=== PATIENT | male | born 1985 ===

== ENCOUNTER 2017-12-10 07:54 | Inpatient (IN) | payer MEDICAID ==
[~2017-12-10] VITALS: Ht 185.4 cm; Wt 82.1 kg
--- NOTE | ~2017-12-10 | MORECARE ---
CASE MANAGEMENT DISCHARGE SUMMARY PATIENT: JOSAFAT YEBOAH UNIT: [id number] ADM DATE: 12/10/17 AGE: 32 : [birth year] SEX: M ROOM/BED: D.2237 AUTHOR: KENTRELL URIAS PHYSICIAN: REFERRING PHYSICIAN: ARABELLA BAER MD DATE OF SERVICE: 12/16/17 Discharge Plan Patient Name: JOSAFAT YEBOAH Facility: [facility]:[place] : 1985 Planned Disposition: Court\Law Enforcement Anticipated Discharge Date: Discharge Date: Expected LOS: Initial Reviewer: [email or web address] Initial Review Date: 12/12/2017 Generated: 12/16/17 2:13 pm Comments DCP- Discharge Planning Updated by [email or web address]: Janett Bermudez on 12/16/17 12:[address] Patient Name: JOSAFAT YEBOAH Admission Status: Elective Accout number: [id number] Admission Date: 12-10-2017 : 1985 Admission Diagnosis:ENTEROCOLITIS DUE TO CLOSTRIDIUM DIFFICILE, RECURRENT Attending: ARABELLA BAER Current LOS: 6 Anticipated DC Date: Planned Disposition: Court\Law Enforcement Primary Insurance: MEDICAID ASSISTED PENDING Discharge Planning Comments: CM SPOKE WITH DAVON AT [facility], SHE SAID HE SHOULD BE ABLE TO RETURN BACK TO [facility] AT [place]. SHE SAID HAVE THE NURSE CALL REPORT TO [phone]. Dermatology Sales Representative: Janett Bermudez DCP- Discharge Planning Updated by [id number]: Rose Lala on 12/12/17 1:[address] Patient Name: JOSAFAT YEBOAH Admission Status: Elective Accout number: [id number] Admission Date: 12-10-2017 : 1985 Admission Diagnosis: Attending: ARABELLA BAER Current LOS: 2 Anticipated DC Date: Planned Disposition: Court\Law Enforcement Primary Insurance: MEDICAID ASSISTED PENDING Discharge Planning Comments: Patient is a resident of [facility] ([place]). He will go back to [facility] on discharge. CM will continue to follow and assist with discharge planning/needs. Dermatology Sales Representative: Rose Lala Last DP export: 12/12/17 1:25 Patient Name: JOSAFAT YEBOAH Page [id number] at 1313 All edits/amendments must be made on the electronic document DICTATION DATE: 12/16/171311 WOOD GLUER: CHEPE 12/16/171311 RPT#: [id number] DC DATE: STATUS: ADM IN [facility] [address] [place] [address] END OF REPORT
--- NOTE | ~2017-12-10 | OP ---
PATIENT NAME: JOSAFAT YEBOAH MEDICAL RECORD: [id number] :[birth year] LOCATION:D.MS [id number] ADMISSION DATE:12/10/17 SURGEON: DESTINY ELAM MD DATE OF OPERATION: 12/11/2017 PREOPERATIVE DIAGNOSIS: Infected pilonidal cyst. POSTOPERATIVE DIAGNOSIS: Infected pilonidal cyst. PROCEDURE: Pilonidal cystectomy. SURGEON: Destiny Elam MD COMMUNICATION CENTER COORDINATOR: None. BLOOD LOSS: 100 cc. ANESTHESIA: General. COMPLICATIONS: None. The patient has refractory C. diff. He has undergone a recent sigmoidoscopy out at the group home and an entire colonoscopy was not attempted due to fear that there would be an iatrogenic perforation. He has been on antibiotics due to an infected pilonidal cyst. My plan is to excise the cyst in its entirety and therefore remove the source of infection. We can then keep him off antibiotics as antibiotics would "kill" the cecal transplant. I then asked Dr. Otto Nieves, who has an extensive experience with fecal transplantation, to perform a fecal transplant likely through an upper GI source. The risks, possible complications and alternatives to the procedure were explained to the patient. He elects to proceed. OPERATIVE COURSE: The patient was conveyed to the operating room electively on 12/11/2017. General anesthesia was induced by anesthesia staff. The patient was placed in the prone jackknife position. Through a central pore, I placed an Angiocath. I then injected a combination of hydrogen peroxide and methylene blue. Through the use of double curvilinear incisions, I excised the skin and subcutaneous tissue around the pore. Additional tissue had to be excised in a piecemeal fashion and this was a sharp dissection. Granulation tissue was present. There was a cyst that was present that was excised as well. I excised all of the blue material that I could identify and this was an excision in a piecemeal fashion. Cultures were obtained of some purulent material. I excised down to the periosteum of the sacrum. Once I was satisfied that the entire cyst had been excised, I measured it and it measured 4.2 cm in the cephalad caudad dimension and 1.7 cm in the lateral dimension. It was 3.0 cm deep. I irrigated with hydrogen peroxide. The wound was closed in layers with interrupted #1 Vicryls for the deep layer as well as multiple interrupted horizontal mattress 2-0 Vicryls for the skin and subcutaneous tissue. I then inserted a quarter-inch Johnny drain between some of the sutures and sutured the drain to the skin with a silk suture. A bulky dressing was then applied. The patient was then extubated and conveyed to post-anesthesia care unit where he was in stable condition. I am going to consult Dr. Otto Nieves to see OPERATIVE REPORT [id number] JOSAFAT YEBOAH if she will be available to perform a fecal transplant on this patient with severe refractory C. difficile colitis. TRANSINT:[id number] Voice Confirmation ID: [id number] DOCUMENT ID: [id number] DESTINY ELAM MD at 1004 CC: OTTO NIEVES MD, ARABELLA BAER MD, DESTINY VALLEJO MD, [id number] , ISIAH WILLIAMSON MD and SHARON BYRD DICTATION DATE: 12/11/17 1155 CLIENT RELATIONSHIP CONSULTANT: 12/11/17 1208 ADM IN [facility] [id number] [place] [address]
--- NOTE | ~2017-12-10 | MORECARE ---
CASE MANAGEMENT DISCHARGE SUMMARY PATIENT: JOSAFAT YEBOAH UNIT: [id number] ADM DATE: 12/10/17 AGE: 32 : [birth year] SEX: M ROOM/BED: D.2237 AUTHOR: KENTRELL URIAS PHYSICIAN: REFERRING PHYSICIAN: ARABELLA BAER MD DATE OF SERVICE: 12/23/17 Discharge Plan Patient Name: JOSAFAT YEBOAH Facility: [facility]:[place] : 1985 Planned Disposition: Court\Law Enforcement Anticipated Discharge Date: Discharge Date: 12/16/2017 Expected LOS: Initial Reviewer: [email or web address] Initial Review Date: 12/12/2017 Generated: 12/23/17 9:19 am Comments DCP- Discharge Planning Updated by [email or web address]: Janett Bermudez on 12/16/17 12:[address] Patient Name: JOSAFAT YEBOAH Admission Status: Elective Accout number: [id number] Admission Date: 12-10-2017 : 1985 Admission Diagnosis:ENTEROCOLITIS DUE TO CLOSTRIDIUM DIFFICILE, RECURRENT Attending: ARABELLA BAER Current LOS: 6 Anticipated DC Date: Planned Disposition: Court\Law Enforcement Primary Insurance: MEDICAID SHELTER PENDING Discharge Planning Comments: CM SPOKE WITH DAVON AT [facility], SHE SAID HE SHOULD BE ABLE TO RETURN BACK TO [facility] AT [place]. SHE SAID HAVE THE NURSE CALL REPORT TO [phone]. Cylinder Inspector And Tester: Janett Bermudez DCP- Discharge Planning Updated by [email or web address]: Rose Lala on 12/12/17 1:[address] Patient Name: JOSAFAT YEBOAH Admission Status: Elective Accout number: [id number] Admission Date: 12-10-2017 : 1985 Admission Diagnosis: Attending: ARABELLA BAER Current LOS: 2 Anticipated DC Date: Planned Disposition: Court\Law Enforcement Primary Insurance: MEDICAID SHELTER PENDING Discharge Planning Comments: Patient is a resident of [facility] ([place]). He will go back to [facility] on discharge. CM will continue to follow and assist with discharge planning/needs. Cylinder Inspector And Tester: Rose Lala Last DP export: 12/16/17 12:13 Patient Name: JOSAFAT YEBOAH Page 45706 at 0819 All edits/amendments must be made on the electronic document DICTATION DATE: 12/23/17817 [employer] FINANCE SALES REP: CHEPE 12/23/17817 RPT#: [id number] DC DATE:12/16/17 STATUS: DIS IN [facility] [address] [place] [address] END OF REPORT
[2017-12-10 10:32] VITALS: BP 142/92
[2017-12-10 14:16] VITALS: BP 112/57; BMI 23.9
[2017-12-10 14:26] LABS: APTT 29.3 SECONDS (22.8-39.4); INR 1.04 (0.85-1.17); PROTIME 13.2 SECONDS (11.6-15.0)
[2017-12-10 14:43] LABS: ALKALINE PHOSPHATASE 64 U/L (46-116); ALT (SGPT) 24 U/L (10-68); BILIRUBIN - TOTAL 0.55 mg/dL (0.2-1.3); CALC OSMOLALITY 275 mosm/kg (275-300); CALCIUM 8.7 mg/dL (8.5-10.1); CARBON DIOXIDE 25.7 mmol/L (21.0-32.0); CHLORIDE - SERUM 106 mmol/L (98-107); CREATININE - SERUM 0.9 mg/dL (0.6-1.3); GLUCOSE 76 mg/dL (74-106); MAGNESIUM - SERUM 1.8 mg/dL (1.8-2.4); POTASSIUM - SERUM 4.5 mmol/L (3.5-5.1); PROTEIN - SERUM 6.2 g/dL (6.4-8.2); SODIUM 140 mmol/L (136-145); UREA NITROGEN 8 mg/dL (7-18); eGFR NON AFRICAN AMERICAN > 90 mL/min (90-120)
[2017-12-10 14:44] VITALS: BP 112/57
[2017-12-10 15:10] LABS: HEMATOCRIT 24.1 % (42.0-54.0); HEMOGLOBIN 7.9 g/dL (13.5-17.5); MCV 88.1 fL (80.0-100.0); MEAN PLATELET VOLUME 9.9 fL (7.4-10.4); PLATELET COUNT 300 10x3/uL (130-400); RBC 2.65 10x6/uL (4.20-6.10); RDW 12.7 % (11.5-14.5); WBC 4.5 10x3/uL (4.8-10.8)
[2017-12-10 15:36] LABS: EOSINOPHILS 2 % (0-7); LYMPHOCYTES 20 % (15-50); MONOCYTES 1 % (2-11); NEUTROPHILS 68 % (40-80); PLATELET ESTIMATE NORMAL
[2017-12-10 17:34] LABS: APPEARANCE CLEAR (CLEAR); COLOR YELLOW (YELLOW); GLUCOSE NEGATIVE (NEGATIVE); NITRITE NEGATIVE (NEGATIVE); PROTEIN NEGATIVE (NEGATIVE)
[2017-12-10 17:35] LABS: AMORPHOUS SEDIMENT <1+ /lpf (NONE SEEN); BILIRUBIN NEGATIVE (NEGATIVE); EPITHELIAL CELLS OCC /hpf (0-5); KETONE SMALL mg/dL (NEGATIVE); RED CELLS - URINE NONE SEEN /hpf (0-5); UROBILINOGEN NORMAL (NORMAL); WHITE CELLS - URINE 0-5 /hpf (0-5)
[2017-12-10 21:20] VITALS: BP 110/60
[2017-12-11 06:26] VITALS: BP 113/61
[2017-12-11 09:19] VITALS: BP 106/62
[2017-12-11 12:07] VITALS: BP 137/72
[2017-12-11 13:09] LABS: BASOPHILS 0.3 % (0-2); EOSINOPHILS 3.4 % (0-7); IMMATURE GRANULOCYTES 0.3 % (0-5); LYMPHOCYTES 14.1 % (15-50); MCH 27.8 pg (26.0-34.0); MCHC 31.9 g/dL (31.0-37.0); MEAN PLATELET VOLUME 9.1 fL (7.4-10.4); MONOCYTES 2.7 % (2-11); NEUTROPHILS 79.2 % (40-80); PLATELET COUNT 286 10x3/uL (130-400)
[2017-12-11 13:13] LABS: HEMATOCRIT 32.9 % (42.0-54.0); HEMOGLOBIN 10.5 g/dL (13.5-17.5); RBC 3.78 10x6/uL (4.20-6.10)
[2017-12-11 13:18] LABS: CALC OSMOLALITY 275 mosm/kg (275-300); CALCIUM 8.7 mg/dL (8.5-10.1); CARBON DIOXIDE 27.7 mmol/L (21.0-32.0); CHLORIDE - SERUM 104 mmol/L (98-107); CREATININE - SERUM 0.9 mg/dL (0.6-1.3); GLUCOSE 102 mg/dL (74-106); SODIUM 139 mmol/L (136-145); UREA NITROGEN 6 mg/dL (7-18); eGFR NON AFRICAN AMERICAN > 90 mL/min (90-120)
[2017-12-11 14:00] VITALS: Ht 185.4 cm; Wt 82.1 kg
[2017-12-11 17:54] LABS: ERYTHROCYTE SEDIMENTATION RATE 6 mm/hr (0-15)
[2017-12-11 20:00] VITALS: BP 121/68
[2017-12-12 05:28] VITALS: BP 107/45
[2017-12-12 06:55] LABS: BASOPHILS 0 % (0-2); EOSINOPHILS 0 % (0-7); HEMATOCRIT 28.7 % (42.0-54.0); HEMOGLOBIN 9.4 g/dL (13.5-17.5); IMMATURE GRANULOCYTES 0.1 % (0-5); LYMPHOCYTES 7.5 % (15-50); MCH 27.7 pg (26.0-34.0); MCHC 32.8 g/dL (31.0-37.0); MEAN PLATELET VOLUME 8.6 fL (7.4-10.4); MONOCYTES 8.9 % (2-11); NEUTROPHILS 83.5 % (40-80); PLATELET COUNT 265 10x3/uL (130-400); RBC 3.39 10x6/uL (4.20-6.10); RDW 13.9 % (11.5-14.5)
[2017-12-12 07:03] LABS: MCV 84.7 fL (80.0-100.0); WBC 9.2 10x3/uL (4.8-10.8)
[2017-12-12 07:07] LABS: CALC OSMOLALITY 275 mosm/kg (275-300); CALCIUM 8.4 mg/dL (8.5-10.1); CARBON DIOXIDE 26.8 mmol/L (21.0-32.0); CHLORIDE - SERUM 104 mmol/L (98-107); CREATININE - SERUM 0.9 mg/dL (0.6-1.3); GLUCOSE 97 mg/dL (74-106); POTASSIUM - SERUM 3.5 mmol/L (3.5-5.1); SODIUM 139 mmol/L (136-145); UREA NITROGEN 6 mg/dL (7-18); eGFR NON AFRICAN AMERICAN > 90 mL/min (90-120)
[2017-12-12 10:20] VITALS: BP 108/40
[2017-12-12 15:20] VITALS: BP 119/56
[2017-12-12 21:37] VITALS: BP 123/61
[2017-12-13] VITALS: BP 98/60
[2017-12-13 04:36] LABS: BASOPHILS 0.1 % (0-2); EOSINOPHILS 4.1 % (0-7); HEMATOCRIT 26.1 % (42.0-54.0); HEMOGLOBIN 8.5 g/dL (13.5-17.5); IMMATURE GRANULOCYTES 0.2 % (0-5); LYMPHOCYTES 13.3 % (15-50); MCH 28.2 pg (26.0-34.0); MCHC 32.6 g/dL (31.0-37.0); MEAN PLATELET VOLUME 8.8 fL (7.4-10.4); MONOCYTES 8.5 % (2-11); NEUTROPHILS 73.8 % (40-80); PLATELET COUNT 224 10x3/uL (130-400); RBC 3.01 10x6/uL (4.20-6.10); RDW 14.3 % (11.5-14.5); WBC 9.5 10x3/uL (4.8-10.8)
[2017-12-13 04:38] LABS: MCV 86.7 fL (80.0-100.0)
[2017-12-13 04:43] LABS: CALCIUM 7.7 mg/dL (8.5-10.1); CARBON DIOXIDE 27.7 mmol/L (21.0-32.0); CHLORIDE - SERUM 105 mmol/L (98-107); GLUCOSE 113 mg/dL (74-106); POTASSIUM - SERUM 3.8 mmol/L (3.5-5.1); SODIUM 137 mmol/L (136-145)
[2017-12-13 04:44] LABS: CALC OSMOLALITY 272 mosm/kg (275-300); CREATININE - SERUM 0.6 mg/dL (0.6-1.3); UREA NITROGEN 8 mg/dL (7-18); eGFR NON AFRICAN AMERICAN > 90 mL/min (90-120)
[2017-12-13 06:08] VITALS: BP 124/63
[2017-12-13 08:06] VITALS: BP 128/71
[2017-12-13 12:52] VITALS: BP 107/57
[2017-12-13 17:33] VITALS: BP 124/70
[2017-12-13 20:56] VITALS: BP 108/56
[2017-12-14 00:51] VITALS: BP 114/53
[2017-12-14 05:09] VITALS: BP 114/49
[2017-12-14 05:17] LABS: BASOPHILS 0.1 % (0-2); EOSINOPHILS 7.3 % (0-7); HEMATOCRIT 28.2 % (42.0-54.0); HEMOGLOBIN 9.1 g/dL (13.5-17.5); IMMATURE GRANULOCYTES 0.1 % (0-5); LYMPHOCYTES 16.9 % (15-50); MCH 28.1 pg (26.0-34.0); MCHC 32.3 g/dL (31.0-37.0); MEAN PLATELET VOLUME 9.3 fL (7.4-10.4); MONOCYTES 11.5 % (2-11); NEUTROPHILS 64.1 % (40-80); PLATELET COUNT 234 10x3/uL (130-400); RBC 3.24 10x6/uL (4.20-6.10); RDW 14.2 % (11.5-14.5); WBC 8.2 10x3/uL (4.8-10.8)
[2017-12-14 05:37] LABS: CALC OSMOLALITY 270 mosm/kg (275-300); CARBON DIOXIDE 30.6 mmol/L (21.0-32.0); CHLORIDE - SERUM 103 mmol/L (98-107); CREATININE - SERUM 0.6 mg/dL (0.6-1.3); GLUCOSE 92 mg/dL (74-106); POTASSIUM - SERUM 3.6 mmol/L (3.5-5.1); SODIUM 137 mmol/L (136-145); eGFR NON AFRICAN AMERICAN > 90 mL/min (90-120)
[2017-12-14 05:57] LABS: UREA NITROGEN 3 mg/dL (7-18)
[2017-12-14 12:49] VITALS: BP 114/53
[2017-12-14 17:47] VITALS: BP 128/64
[2017-12-14 20:50] VITALS: BP 114/56
[2017-12-15 05:27] VITALS: BP 115/50
[2017-12-15 05:47] LABS: BASOPHILS 0.3 % (0-2); EOSINOPHILS 9.2 % (0-7); HEMOGLOBIN 8.4 g/dL (13.5-17.5); IMMATURE GRANULOCYTES 0.1 % (0-5); LYMPHOCYTES 20.8 % (15-50); MCH 27.1 pg (26.0-34.0); MCHC 31.1 g/dL (31.0-37.0); MCV 87.1 fL (80.0-100.0); MEAN PLATELET VOLUME 9.5 fL (7.4-10.4); MONOCYTES 11.3 % (2-11); NEUTROPHILS 58.3 % (40-80); PLATELET COUNT 233 10x3/uL (130-400); RDW 14.2 % (11.5-14.5); WBC 6.7 10x3/uL (4.8-10.8)
[2017-12-15 06:05] LABS: CALC OSMOLALITY 276 mosm/kg (275-300); CALCIUM 7.8 mg/dL (8.5-10.1); CARBON DIOXIDE 30.7 mmol/L (21.0-32.0); CHLORIDE - SERUM 106 mmol/L (98-107); CREATININE - SERUM 0.6 mg/dL (0.6-1.3); GLUCOSE 87 mg/dL (74-106); POTASSIUM - SERUM 3.8 mmol/L (3.5-5.1); SODIUM 141 mmol/L (136-145); UREA NITROGEN 3 mg/dL (7-18); eGFR NON AFRICAN AMERICAN > 90 mL/min (90-120)
[2017-12-15 10:28] VITALS: BP 133/76
[2017-12-15 12:37] VITALS: BP 110/56
[2017-12-15 17:10] VITALS: BP 127/53
[2017-12-15 22:54] VITALS: BP 110/57
[2017-12-16 05:09] VITALS: BP 114/57
[2017-12-16 05:53] LABS: BASOPHILS 0.3 % (0-2); EOSINOPHILS 11.5 % (0-7); HEMATOCRIT 27.9 % (42.0-54.0); HEMOGLOBIN 8.7 g/dL (13.5-17.5); IMMATURE GRANULOCYTES 0.3 % (0-5); LYMPHOCYTES 19.2 % (15-50); MCHC 31.2 g/dL (31.0-37.0); MCV 86.6 fL (80.0-100.0); MEAN PLATELET VOLUME 9.3 fL (7.4-10.4); MONOCYTES 9.8 % (2-11); NEUTROPHILS 58.9 % (40-80); RBC 3.22 10x6/uL (4.20-6.10); WBC 7.8 10x3/uL (4.8-10.8)
[2017-12-16 06:30] LABS: PLATELET COUNT 287 10x3/uL (130-400)
[2017-12-16 08:00] VITALS: BP 132/79
[2017-12-16 10:44] LABS: ALBUMIN 2.1 g/dL (3.4-5.0); ALKALINE PHOSPHATASE 53 U/L (46-116); ALT (SGPT) 16 U/L (10-68); BILIRUBIN - TOTAL 0.15 mg/dL (0.2-1.3); CALC OSMOLALITY 276 mosm/kg (275-300); CALCIUM 7.9 mg/dL (8.5-10.1); CARBON DIOXIDE 29.5 mmol/L (21.0-32.0); CHLORIDE - SERUM 107 mmol/L (98-107); CREATININE - SERUM 0.7 mg/dL (0.6-1.3); GLUCOSE 81 mg/dL (74-106); POTASSIUM - SERUM 3.8 mmol/L (3.5-5.1); PROTEIN - SERUM 5.6 g/dL (6.4-8.2); SODIUM 141 mmol/L (136-145); eGFR NON AFRICAN AMERICAN > 90 mL/min (90-120)
[2017-12-16 10:47] LABS: UREA NITROGEN 4 mg/dL (7-18)
[2017-12-16] MEDS ORDERED: FERROUS SULFAT325 MG PO (11:51)
[2017-12-16 13:06] VITALS: BP 128/60
== END 2017-12-16 15:37 | DRG 571 ==
LOC: D.M2 → D.MS 10:09
PROVIDERS: Emergency Medicine; Internal Medicine Gastroenterology; Internal Medicine Nephrology; Surgery
PROC: 0JB90ZZ Excision of Buttock Subcutaneous Tissue and Fascia, Open Approach (ICD-10-PCS; principal; 2017-12-11 12:45)
PROC: 3E0G8GC Introduction of Other Therapeutic Substance into Upper GI, Via Natural or Artificial Opening Endoscopic (ICD-10-PCS; 2017-12-12)
DX: L05.91 Pilonidal cyst without abscess (principal); A04.71 Enterocolitis due to Clostridium difficile, recurrent